=== PATIENT | male | born 1995 | race Caucasian/White ===

== ENCOUNTER 2019-07-21 18:08 | Emergency (ER) | payer MEDICAID ==
[~2019-07-21] VITALS: Ht 167.6 cm; Wt 99.8 kg
[2019-07-21 18:08] VITALS: BP_SYST 160
--- NOTE | 2019-07-21 18:08 | NUR ---
ER Dr. Soliz at bedside examining patient.
--- NOTE | 2019-07-21 18:08 | NUR ---
Placed in room 1. Placed on monitoring specialist, blood pressure machine and pulse oximeter. To gown for exam. Side rails up. Report given to SRAVANI Marc.
[2019-07-21] MEDS ORDERED: NACL 0.9% 1,000 ML IV ONE (18:18)
--- NOTE | 2019-07-21 18:20 | NUR ---
PATIENT TO ER #1
[2019-07-21] MEDS ORDERED: LORazepam 2 MG/ML VIAL IM ONE (18:30)
[2019-07-21] MEDS ORDERED: HALOPERIDOL LACTATE 5 MG/ML VIAL IM ONE (18:30)
[2019-07-21] MEDS ORDERED: DIPHENHYDRAMINE INJ 50 MG/ML VIAL IM ONE (18:30)
[2019-07-21] MEDS ORDERED: ACETAMINOPHEN 500 MG TABLET PO ONE (18:30)
[2019-07-21] MEDS ORDERED: ONDANSETRON HCL 4 MG/2 ML VIAL IVP ONE (18:30)
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
--- NOTE | 2019-07-21 19:01 | NUR ---
Patient is screaming at the top of his lungs for no apparent reason. Patient then started smirking.
--- NOTE | 2019-07-21 19:03 | NUR ---
Patient is kneeling in bed attempted to get out. Patient laid back down.
--- NOTE | 2019-07-21 19:33 | NUR ---
Pt re-oriented and placed into bed with siderails up. x4 nurses needed to assist with re-orientation and manual restrain to place IV and draw blood. Pt confused, agitated
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
[2019-07-21 20:03] LABS: BASOPHILS % (AUTO) 0.2 % (0.0-2.0); EOSINOPHILS % (AUTO) 0.2 % (0.0-4.0); HEMATOCRIT 44.5 % (36-54); LYMPHOCYTES # (AUTO) 1.3 K/uL (1.0-5.5); LYMPHOCYTES % (AUTO) 8.2 % (20.5-51.5); MEAN CORPUSCULAR HEMOGLOBIN 29 pg (27-31); MEAN CORPUSCULAR HGB CONC 34 % (32-36); MEAN CORPUSCULAR VOLUME 85 fL (79.0-98.0); MONOCYTES # (AUTO) 1.3 K/uL (0.0-1.0); MONOCYTES % (AUTO) 7.9 % (1.7-9.3); NEUTROPHILS # (AUTO) 13.7 K/uL (1.8-7.7); NEUTROPHILS % (AUTO) 83.5 % (40.0-70.0); PLATELET COUNT (AUTO) 239 K/uL (130-430); RED BLOOD CELL COUNT(AUTO) 5.21 MIL/uL (4.2-6.2); RED CELL DISTRIBUTION WIDTH 13.7 % (9.0-15.0); WHITE BLOOD COUNT (AUTO) 16.4 K/uL (4.8-10.8)
[2019-07-21 20:07] LABS: CALCIUM 9.1 mg/dL (8.4-11.0); CREATININE 0.88 mg/dL (0.55-1.30); POTASSIUM 3.4 mmol/L (3.5-5.1)
[2019-07-21 20:13] LABS: ALBUMIN 4.3 g/dL (3.4-4.8); TOTAL BILIRUBIN 1.2 mg/dL (0.0-1.0)
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
[2019-07-21 20:57] LABS: BARBITURATE, URINE NEGATIVE (NEG <=200); BENZODIAZEPINE, URINE NEGATIVE (NEG <=150); COCAINE, URINE NEGATIVE (NEG <=150); METHAMPHETAMINES SCREEN,URINE POSITIVE (NEG <=500); URINE AMPHETAMINE POSITIVE (NEG <=500); URINE METHADONE NEGATIVE (NEG <=200)
[2019-07-21 20:58] LABS: CANNABINOID, URINE POSITIVE (NEG <=50); OPIATE, URINE NEGATIVE (NEG <=100); PHENCYCLIDINE SCREEN,URINE NEGATIVE (NEG <=25); UR TRICYCLIC ANTIDEPRESSANTS NEGATIVE (NEG <=300); URINE OXYCODONE SCREEN NEGATIVE (NEG <=100); URINE PROPOXYPHENE SCREEN NEGATIVE (NEG <=300)
--- NOTE | 2019-07-21 22:17 | NUR ---
Pt Resting in ed bed. Pt displays no acute respiratory or cardiac distress at this time.
[2019-07-21 22:37] LABS: BILIRUBIN,URINE NEGATIVE (NEGATIVE); BLOOD, URINE NEGATIVE (NEGATIVE); CLARITY/URINE CLEAR (CLEAR); COLOR,URINE YELLOW (YELLOW); GLUCOSE,URINE NEGATIVE (NEGATIVE); KETONES,URINE NEGATIVE (NEGATIVE); LEUKOCYTE ESTERASE ,URINE NEGATIVE (NEGATIVE); NITRITE, URINE NEGATIVE (NEGATIVE); PROTEIN URINE 1+ (NEGATIVE); UROBILINOGEN,URINE 0.2 (0.2-1.0)
[2019-07-21 23:02] LABS: BACTERIA,URINE FEW /HPF (None Seen); RBC,URINE 0-3 /HPF (0-3); WBC,URINE 0-3 /HPF (0-3)
--- NOTE | 2019-07-22 00:47 | NUR ---
Pt resting in ed bed. No acute distress at this time. Pt denies any other medical complaint at this time.
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
--- NOTE | 2019-07-22 01:35 | NUR ---
Pt ambulated with assistanc to assess gait. Stable gait
--- NOTE | 2019-07-22 01:45 | NUR ---
Pt able to contract for own safety, to be discharged on his own accord. Called patients mother at his request. [phone]. She states she will be coming to pick patient up, and to ask patient to wait in the front waiting room for him.
[2019-07-22 01:50] VITALS: BP_SYST 121
--- NOTE | 2019-07-22 01:50 | NUR ---
Patient given written and verbal discharge instructions and verbalizes understanding. ER MD discussed with patient the results and treatment provided. Patient in stable condition. ID arm band removed. IV catheter removed intact and dressing applied, no active bleeding. No RX given. Patient educated on pain management and to follow up with PMD. Pain Scale 0/10. Opportunity for questions provided and answered.
== END 2019-07-22 01:50 | disposition home or self-care (01) ==
LOC: EDBD 18:08 → SED 18:08
DX: R41.82 Altered mental status, unspecified (principal); F12.90 Cannabis use, unspecified, uncomplicated; F15.90 Other stimulant use, unspecified, uncomplicated; M79.675 Pain in left toe(s); W22.8XXA Striking against or struck by other objects, initial encounter; Y93.89 Activity, other specified; Y92.143 Cell of prison as the place of occurrence of the external cause; Y99.8 Other external cause status
CPT/HCPCS: 36415; 71045; 73660; 80053; 80307; 81000; 83605; 84484; 85025; 87040; 93005; 96360; 96372; 99285; J1200; J1630; J2060; J7030

== ENCOUNTER 2021-09-13 01:33 | Emergency (ER) | payer SELFPAY ==
[~2021-09-13] VITALS: Ht 167.6 cm; Wt 72.6 kg
[2021-09-13 01:58] VITALS: BP_SYST 160
[2021-09-13] MEDS ORDERED: LORazepam 2 MG/ML VIAL IVP ONE (02:15)
[2021-09-13] MEDS ORDERED: NACL 0.9% 1,000 ML IV ONE (02:15)
[2021-09-13 02:20] VITALS: BP_SYST 160
== END 2021-09-13 04:13 | disposition home or self-care (01) ==
LOC: SED 01:33
DX: F19.10 Other psychoactive substance abuse, uncomplicated (principal)
CPT/HCPCS: 96361; 96374; 99283; J2060; J7030